=== PATIENT | male | born 1975 | race Caucasian/White ===

== ENCOUNTER 2019-05-09 12:20 | Emergency (ER) | payer OTHER ==
[~2019-05-09] VITALS: Ht 188 cm; Wt 154.5 kg
[2019-05-09 12:35] VITALS: Ht 188 cm; Wt 154.5 kg
[2019-05-09] MEDS ORDERED: PAXIL20 MG PO (12:39)
[2019-05-09] MEDS ORDERED: CYCLOBENZAPRINE10 MG PO (12:39)
[2019-05-09] MEDS ORDERED: HYDROCODON-ACE1 EAC2 PO (12:39)
[2019-05-09 15:06] VITALS: BP 142/86
== END 2019-05-09 15:07 | disposition home or self-care (01) ==
LOC: D.ER 12:20
DX: M79.672 Pain in left foot (principal); Z87.81 Personal history of (healed) traumatic fracture

== ENCOUNTER → 2019-08-04 18:03 | Outpatient (CLI) | payer OTHER ==
[2019-07-21 16:29] VITALS: BMI 43.7
[~2019-08-04 18:03] MED LIST: CYCLOBENZAPRINE10 MG PO; HYDROCODON-ACE1 EAC2 PO; PAXIL20 MG PO; TORADOL10 MG PO
== END | disposition home or self-care (01) ==
LOC: D.LABREF 18:03
PROVIDERS: ATTEND Orthopaedic Surgery
DX: M16.11 Unilateral primary osteoarthritis, right hip (principal)

== ENCOUNTER 2019-08-10 11:06 | Inpatient (IN) | payer OTHER ==
[~2019-08-10] VITALS: Ht 188 cm; Wt 147.7 kg
[2019-09-29 11:40] LABS: PROTIME 13.2 SECONDS (11.6-15.0)
[2019-09-29 11:41] LABS: APTT 27.1 SECONDS (22.8-39.4); BASOPHILS 0.3 % (0-2); EOSINOPHILS 2.7 % (0-7); HEMATOCRIT 48.5 % (42.0-54.0); HEMOGLOBIN 15.9 g/dL (13.5-17.5); IMMATURE GRANULOCYTES 0.3 % (0-5); LYMPHOCYTES 39.7 % (15-50); MCH 31.2 pg (26.0-34.0); MCHC 32.8 g/dL (31.0-37.0); MCV 95.3 fL (80.0-100.0); MEAN PLATELET VOLUME 8.7 fL (7.4-10.4); MONOCYTES 6.7 % (2-11); NEUTROPHILS 50.3 % (40-80); PLATELET COUNT 306 10x3/uL (130-400); RBC 5.09 10x6/uL (4.20-6.10); RDW 13.8 % (11.5-14.5); WBC 11.7 10x3/uL (4.8-10.8)
[2019-09-29 11:43] LABS: BILIRUBIN NEGATIVE (NEGATIVE); GLUCOSE NEGATIVE (NEGATIVE); KETONE NEGATIVE (NEGATIVE); NITRITE NEGATIVE (NEGATIVE); SPECIFIC GRAVITY 1.015 (1.005-1.020); UROBILINOGEN NORMAL (NORMAL)
[2019-09-29 11:44] LABS: BACTERIA FEW /hpf (NEGATIVE); EPITHELIAL CELLS 0-5 /hpf (0-5); RED CELLS - URINE 0-5 /hpf (0-5); WHITE CELLS - URINE 0-5 /hpf (NEGATIVE)
[2019-09-29 11:47] LABS: CALC OSMOLALITY 274 mosm/kg (275-300); CALCIUM 9.2 mg/dL (8.5-10.1); CARBON DIOXIDE 28.9 mmol/L (21.0-32.0); CHLORIDE - SERUM 102 mmol/L (98-107); CREATININE - SERUM 0.9 mg/dL (0.6-1.3); GLUCOSE 86 mg/dL (74-106); POTASSIUM - SERUM 4.2 mmol/L (3.5-5.1); SODIUM 139 mmol/L (136-145); UREA NITROGEN 7 mg/dL (7-18); eGFR NON AFRICAN AMERICAN > 90 mL/min (90-120)
[2019-10-05] VITALS (12 sets, daily range): BP systolic 98–138; BP diastolic 57–87; Ht 188 cm; Wt 147.7 kg
--- NOTE | 2019-10-05 11:10 | NUR ---
RECEIVED TO ROOM 1209 VIA BED FROM PACU. A/O X3. C/O PAIN TO RIGHT HIP LEVEL 10. WILL MONITOR. SKIN INTACT EXCEPT INCISION TO RIGHT HIP WHICH HAS A DRY INTACT DRESSING IN PLACE. VSS. DENIES NEEDS.
--- NOTE | 2019-10-05 11:32 | NUR ---
REQUESTED AND GIVNE ONE PERCOCET WITH 50MG VISTIRIL PO FOR C/O RIGHT HIP PAIN LEVEL 10. WILL MONITOR.
--- NOTE | 2019-10-05 12:10 | NUR ---
CONTINUES TO C/O RIGHT HIP LEVEL 10. GIVNE 15MG TORADOL SLOW IVP FOR SAME. WILL MONITOR.
--- NOTE | 2019-10-05 13:01 | NUR ---
ATE ALL OF LUNCH. REPORTS PAIN IMPROVED AT THIS TIME.
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
--- NOTE | 2019-10-05 16:25 | NUR ---
REQUESTED AND GIVEN 10MG OXY IR PO FOR C/O RIGHT HIP PAIN LEVEL 6. WILL MONITOR.
--- NOTE | 2019-10-05 17:46 | NUR ---
ATE ALL OF SUPPER TRAY. REPORTS PAIN WELL CONTROLLED WITH OXY IR PO. NO CHANGES NOTED. DENIES NEEDS.
--- NOTE | 2019-10-05 19:24 | NUR ---
PATIENT RESTING IN BED WITH NO S/S OF DISTRESS. VSS. PATIENT C/O PAIN. ADMINISTERED TORADOL PER ORDERS. PATIENT DENIES OTHER NEEDS AT THIS TIME. BED IN LOWEST POSITION AND CALL LIGHT WITHIN REACH. ENCOURAGED THE PATIENT TO CALL IF HE HAS NEEDS. WILL CONTINUE TO MONITOR.
--- NOTE | 2019-10-05 20:47 | NUR ---
PATIENT C/O IF UNCONTROLLED PAIN. ADMINISTERED OXY AND VISTARIL. WILL CONTINUE TO MONITOR. ENCOURAGED THE PATIENT TO CALL IF HE HAS NEEDS.
--- NOTE | 2019-10-05 22:30 | NUR ---
PATIENT C/O UNCONTROLLED PAIN. ADMINISTERED DILAUDID PER ORDERS. ENCOURAGED PATIENT TO CALL IF HE HAS NEEDS. WILL CONTINUE TO MONITOR.
--- NOTE | 2019-10-05 23:23 | NUR ---
PATIENT STATES PAIN IS BETTER, 5/10. WILL CONTINUE TO MONITOR.
[2019-10-06 03:21] VITALS: BP 101/67
[2019-10-06 06:58] LABS: BASOPHILS 0 % (0-2); EOSINOPHILS 0 % (0-7); HEMATOCRIT 38.7 % (42.0-54.0); HEMOGLOBIN 12.4 g/dL (13.5-17.5); IMMATURE GRANULOCYTES 0.3 % (0-5); LYMPHOCYTES 13.2 % (15-50); MCH 30.8 pg (26.0-34.0); MEAN PLATELET VOLUME 8.8 fL (7.4-10.4); NEUTROPHILS 78.5 % (40-80); PLATELET COUNT 285 10x3/uL (130-400); RBC 4.03 10x6/uL (4.20-6.10); RDW 13.9 % (11.5-14.5); WBC 16.9 10x3/uL (4.8-10.8)
[2019-10-06 07:09] LABS: CALC OSMOLALITY 276 mosm/kg (275-300); CARBON DIOXIDE 27.3 mmol/L (21.0-32.0); CHLORIDE - SERUM 104 mmol/L (98-107); CREATININE - SERUM 0.9 mg/dL (0.6-1.3); GLUCOSE 146 mg/dL (74-106); POTASSIUM - SERUM 4.7 mmol/L (3.5-5.1); SODIUM 137 mmol/L (136-145); UREA NITROGEN 12 mg/dL (7-18); eGFR NON AFRICAN AMERICAN > 90 mL/min (90-120)
[2019-10-06 07:38] VITALS: BP 105/66
--- NOTE | 2019-10-06 10:42 | NUR ---
PT CURRENTLY SITTING UP IN CHAIR AT BEDSIDE AFTER AMUBLATING WITH THERPAY. HAS BEEN USING INCENTIVE SPIROMETRY AND PULLING APPROX 1500CC EVERY FEW HOURS. SCDS ON BILAT. HAS VOIDED USING URINAL SEVERAL TIMES. STATES PAIN IS 4/10 AFTER PAIN MEDS THIS AM. FALL PRECAUTIONS IN PLACE. CALL LIGHT IN REACH. DRESSING TO RIGHT HIP CLEAN DRY AND INTACT
[2019-10-06 11:13] VITALS: BP 107/71
[2019-10-06 15:46] VITALS: BP 131/71
--- NOTE | 2019-10-06 19:25 | NUR ---
LYING IN BED. C/O PAIN IN RT HIP 7. WOUND VAC NOTED TO RT HIP WITH NO DRAINAGE NOTED. SCDS IN USE BILAT. RESP EVEN AND NONLABORED. NONPROD COUGH NOTED. ENCOURAGED USE OF I.S. 1/2 NS @ 50 MLHR INFUSING IN LT HAND WITHOUT DIFF. USES URINAL. ALERT AND ORIENTED X4. IRRITABLE AT TIMES. SABRINA ON. SR ELEVATED X2. CL IN REACH.
[2019-10-06 20:00] VITALS: BP 132/72
--- NOTE | 2019-10-06 20:25 | NUR ---
MEDICATED WITH FLEXERIL FOR C/O PAIN IN RT HIP.
--- NOTE | 2019-10-06 20:57 | MORECARE ---
CASE MANAGEMENT DISCHARGE SUMMARY PATIENT: KARELY SCHREIBER KATHRINE UNIT: [id number] ADM DATE: 10/05/19 AGE: 44 : 71 SEX: M ROOM/BED: D.1209 AUTHOR: AKUA JOHNSON PHYSICIAN: REFERRING PHYSICIAN: SIVA DINH DO DATE OF SERVICE: 10/06/19 Discharge Plan Patient Name: KARELY SCHREIBER Facility: [facility]:[place] : 1975 Planned Disposition: Anticipated Discharge Date: Discharge Date: Expected LOS: Initial Reviewer: [email or web address] Initial Review Date: 10/05/2019 Generated: 10/06/19 9:56 pm Patient Name: KARELY SCHREIBER Page [id number] at 2056 All edits/amendments must be made on the electronic document DICTATION DATE: 10/06/192055 LINE LOCATOR: XOCHILT 10/06/192055 RPT#: [id number] DC DATE: STATUS: ADM IN [facility] [address] [place] [address] END OF REPORT
--- NOTE | 2019-10-06 21:03 | MORECARE ---
CASE MANAGEMENT DISCHARGE SUMMARY PATIENT: KARELY SCHREIBER UNIT: [id number] ADM DATE: 10/05/19 AGE: 44 : 71 SEX: M ROOM/BED: D.1209 AUTHOR: AKUA JOHNSON PHYSICIAN: REFERRING PHYSICIAN: SIVA DINH DO DATE OF SERVICE: 10/06/19 Discharge Plan Patient Name: KARELY SCHREIBER Facility: [facility]:[place] : 1975 Planned Disposition: Anticipated Discharge Date: Discharge Date: Expected LOS: Initial Reviewer: [email or web address] Initial Review Date: 10/05/2019 Generated: 10/06/19 10:03 pm Comments DCP- Discharge Planning Updated by [email or web address]: Lourdes Paulson on 10/06/19 8:[address] Patient Name: KARELY SCHREIBER Admission Status: Elective Accout number: [id number] Admission Date: 10-05-2019 : 1975 Admission Diagnosis: Attending: SIVA DINH Current LOS: 1 Anticipated DC Date: Planned Disposition: Primary Insurance: [facility] PPO Discharge Planning Comments: CM met with patient at bedside after explaining CM role and obtaining verbal consent. Patient lives at home with family where he is independent with his care and plans to return there upon discharge. Patient feels this would be a safe discharge. CM discussed availability / needs of home health and medical equipment. CM met with patient at bedside after explaining CM role and obtaining verbal consent. Patient states that they are suppose to get me a walker and whatever else we need. DME [facility] signed for outpatient therapy [facility]. CM will send orders for therapy and DME orders. Patient denies any discharge needs at this time. Patient states he will have his family drive him home upon discharge. CM will continue to follow and assist as needed with discharge planning / needs. Collar Fuser: Lourdes Paulson Last DP export: 10/06/19 7:57 pm Patient Name: KARELY SCHREIBER Page 12516 at 2103 All edits/amendments must be made on the electronic document DICTATION DATE: 10/06/192102 MAT WEAVER: DM 10/06/192102 RPT#: [id number] DC DATE: STATUS: ADM IN [facility] [address] [place] [address] END OF REPORT
--- NOTE | 2019-10-06 21:10 | MORECARE ---
CASE MANAGEMENT DISCHARGE SUMMARY PATIENT: KARELY SCHREIBER UNIT: [id number] ADM DATE: 10/05/19 AGE: 44 : 71 SEX: M ROOM/BED: D.1209 AUTHOR: ELIZABETH,DOC PHYSICIAN: REFERRING PHYSICIAN: SIVA DINH DO DATE OF SERVICE: 10/06/19 Discharge Plan Patient Name: KARELY SCHREIBER Facility: [facility]:[place] : 1975 Planned Disposition: Home Anticipated Discharge Date: Discharge Date: Expected LOS: Initial Reviewer: [email or web address] Initial Review Date: 10/05/2019 Generated: 10/06/19 10:09 pm Comments DCP- Discharge Planning Updated by [email or web address]: Lourdes Paulson on 10/06/19 8:[address] Patient Name: KARELY SCHREIBER Admission Status: Elective Accout number: [id number] Admission Date: 10-05-2019 : 1975 Admission Diagnosis: Attending: SIVA DINH Current LOS: 1 Anticipated DC Date: Planned Disposition: Primary Insurance: [place] [employer] PPO Discharge Planning Comments: CM met with patient at bedside after explaining CM role and obtaining verbal consent. Patient lives at home with family where he is independent with his care and plans to return there upon discharge. Patient feels this would be a safe discharge. CM discussed availability / needs of home health and medical equipment. CM met with patient at bedside after explaining CM role and obtaining verbal consent. Patient states that they are suppose to get me a walker and whatever else we need. DME [facility] [facility] signed for outpatient therapy [facility]. CM will send orders for therapy and DME orders. Patient denies any discharge needs at this time. Patient states he will have his family drive him home upon discharge. CM will continue to follow and assist as needed with discharge planning / needs. Rubber Compounder Mixer: Lourdes Paulson DCPIA - Discharge Planning Initial Assessment Updated by [email or web address]: Lourdes Paulson on 10/06/19 9:10 pm * Is the patient Alert and Oriented? Yes * How many steps to enter\exit or inside your home? * PCP HONORIO HUBER * Pharmacy [facility] * Preadmission Environment Home with Family * ADLs Independent * Equipment None * List name and contact numbers for known caregivers / representatives who currently or will assist patient after discharge: CLARITA HERNANDEZ - - [phone] * Verbal permission to speak to the caregivers and representatives has been obtained from the patient. Yes * Community resources currently utilized None * Additional services required to return to the preadmission environment? No * Can the patient safely return to the preadmission environment? Yes * Has this patient been hospitalized within the prior 30 days at any hospital? No Last DP export: 10/06/19 8:03 pm Patient Name: KAREYL SCHREIBER Page [phone] at 2110 All edits/amendments must be made on the electronic document DICTATION DATE: 10/06/192109 ENTRY LEVEL FINANCE: XOCHILT 10/06/192109 RPT#: [id number] DC DATE: STATUS: ADM IN [facility] [address] [place] [address] END OF REPORT
--- NOTE | 2019-10-06 21:36 | MORECARE ---
CASE MANAGEMENT DISCHARGE SUMMARY PATIENT: KARELY SCHREIBER UNIT: [id number] ADM DATE: 10/05/19 AGE: 44 : 71 SEX: M ROOM/BED: D.1209 AUTHOR: ELIZABETH,DOC PHYSICIAN: REFERRING PHYSICIAN: SIVA DINH DO DATE OF SERVICE: 10/06/19 Discharge Plan Patient Name: KARELY SCHREIBER Facility: [facility]:[place] : 1975 Planned Disposition: Home Anticipated Discharge Date: Discharge Date: Expected LOS: Initial Reviewer: [email or web address] Initial Review Date: 10/05/2019 Generated: 10/06/19 10:35 pm Comments DCP- Discharge Planning Updated by [email or web address]: Lourdes Paulson on 10/06/19 8:[address] Patient Name: KARELY SCHREIBER Admission Status: Elective Accout number: [id number] Admission Date: 10-05-2019 : 1975 Admission Diagnosis: Attending: SIVA DINH Current LOS: 1 Anticipated DC Date: Planned Disposition: Primary Insurance: [employer] [employer] PPO Discharge Planning Comments: CM met with patient at bedside after explaining CM role and obtaining verbal consent. Patient lives at home with family where he is independent with his care and plans to return there upon discharge. Patient feels this would be a safe discharge. CM discussed availability / needs of home health and medical equipment. CM met with patient at bedside after explaining CM role and obtaining verbal consent. Patient states that they are suppose to get me a walker and whatever else we need. DME [facility] signed for outpatient therapy [facility]. CM will send orders for therapy and DME orders. Patient denies any discharge needs at this time. Patient states he will have his family drive him home upon discharge. CM will continue to follow and assist as needed with discharge planning / needs. Strapper Operator: Lourdes Paulson DCPIA - Discharge Planning Initial Assessment Updated by [email or web address]: Lourdes Paulson on 10/06/19 9:10 pm * Is the patient Alert and Oriented? Yes * How many steps to enter\exit or inside your home? * PCP [facility]ON[facility]IO HUBER * Pharmacy [facility] * Preadmission Environment Home with Family * ADLs Independent * Equipment None * List name and contact numbers for known caregivers / representatives who currently or will assist patient after discharge: CLARITA HERNANDEZ - - [phone] * Verbal permission to speak to the caregivers and representatives has been obtained from the patient. Yes * Community resources currently utilized None * Additional services required to return to the preadmission environment? No * Can the patient safely return to the preadmission environment? Yes * Has this patient been hospitalized within the prior 30 days at any hospital? No External Providers [facility] Next Contact Date: Service Request Date: Service Type: Resolution: Reviewer: Comments: Last DP export: 10/06/19 8:10 pm Patient Name: KARELY SCHREIBER Page [phone] at 2136 All edits/amendments must be made on the electronic document DICTATION DATE: 10/06/192134 VITAMIN MANAGER: XOCHILT 10/06/192134 RPT#: [id number] DC DATE: STATUS: ADM IN [facility] [address] [place] [address] END OF REPORT
--- NOTE | 2019-10-07 00:27 | NUR ---
ASSISTED UP TO BR. REFUSED TO USE WALKER AT FIRST. IRRITABLE WITH STAFF. WANTS IV SALINE LOCKED. REFUSED TO USE BSC. UNSTEADY. C/O PAIN IN RT HIP. MEDICATED WITH OXYCODONE PER REQUEST. CL IN REACH.
[2019-10-07 00:30] VITALS: BP 134/68
--- NOTE | 2019-10-07 03:00 | NUR ---
RESTING WITH EYES CLOSED. RESP NONLABORED. NO DISTRESS. CL IN REACH.
[2019-10-07 04:31] VITALS: BP 107/62
[2019-10-07 06:52] LABS: BASOPHILS 0.2 % (0-2); EOSINOPHILS 1.4 % (0-7); HEMATOCRIT 35.4 % (42.0-54.0); HEMOGLOBIN 11.3 g/dL (13.5-17.5); IMMATURE GRANULOCYTES 0.6 % (0-5); LYMPHOCYTES 37.5 % (15-50); MCH 30.7 pg (26.0-34.0); MCHC 31.9 g/dL (31.0-37.0); MCV 96.2 fL (80.0-100.0); MEAN PLATELET VOLUME 8.8 fL (7.4-10.4); MONOCYTES 8.3 % (2-11); PLATELET COUNT 236 10x3/uL (130-400); RBC 3.68 10x6/uL (4.20-6.10)
[2019-10-07 06:55] LABS: WBC 12.5 10x3/uL (4.8-10.8)
[2019-10-07 07:19] LABS: CALC OSMOLALITY 277 mosm/kg (275-300); CALCIUM 7.9 mg/dL (8.5-10.1); CARBON DIOXIDE 28.6 mmol/L (21.0-32.0); CHLORIDE - SERUM 105 mmol/L (98-107); CREATININE - SERUM 0.8 mg/dL (0.6-1.3); SODIUM 140 mmol/L (136-145); UREA NITROGEN 13 mg/dL (7-18); eGFR NON AFRICAN AMERICAN > 90 mL/min (90-120)
[2019-10-07 07:20] LABS: GLUCOSE 88 mg/dL (74-106)
[2019-10-07 07:43] VITALS: BP 123/68
--- NOTE | 2019-10-07 08:30 | NUR ---
BREAKFAST SERVED IN ROOM. ATE MOST OF TRAY. REQUESTED AND GIVEN 10MG OXY WTIH 50MG VISTARIL FOR PAIN LEVEL 6 TO RIGHT HIP. WILL MONITOR. AWAKE AND ALERT. ORIENTED X3. SKIN IS INTACT WITHOUT REDNESS EXCEPT INCISION TO RIGHT HIP WHICH HAS A DRY INTACT DRESSING IN PLACE. SL TO LEFT HAND IS PATENT WITHOUT REDNESS AT INSERTION SITE, DENIES NEEDS.
[2019-10-07] MEDS ORDERED: BAYER CHEWABLE81 MG PO (08:33)
[2019-10-07] MEDS ORDERED: VISTARIL50 MG PO (08:34)
[2019-10-07] MEDS ORDERED: OXYCODONE HCL10 MG PO (08:34)
[2019-10-07] MEDS ORDERED: KEFLEX500 MG PO (08:34)
[2019-10-07 11:44] VITALS: BP 109/70
--- NOTE | 2019-10-07 12:38 | MORECARE ---
CASE MANAGEMENT DISCHARGE SUMMARY PATIENT: KARELY SCHREIBER UNIT: [id number] ADM DATE: 10/05/19 AGE: 44 : 71 SEX: M ROOM/BED: D.1209 AUTHOR: ELIZABETH,DOC PHYSICIAN: REFERRING PHYSICIAN: SIVA DINH DO DATE OF SERVICE: 10/07/19 Discharge Plan Patient Name: KARELY SCHREIBER Facility: [facility]:[place] : 1975 Planned Disposition: Home Anticipated Discharge Date: Discharge Date: Expected LOS: Initial Reviewer: [email or web address] Initial Review Date: 10/05/2019 Generated: 10/07/19 1:37 pm Comments DCP- Discharge Planning Updated by [email or web address]: Lourdes Paulson on 10/06/19 8:[address] Patient Name: KARELY SCHREIBER Admission Status: Elective Accout number: [id number] Admission Date: 10-05-2019 : 1975 Admission Diagnosis: Attending: SIVA DINH Current LOS: 1 Anticipated DC Date: Planned Disposition: Primary Insurance: [employer] PPO Discharge Planning Comments: CM met with patient at bedside after explaining CM role and obtaining verbal consent. Patient lives at home with family where he is independent with his care and plans to return there upon discharge. Patient feels this would be a safe discharge. CM discussed availability / needs of home health and medical equipment. CM met with patient at bedside after explaining CM role and obtaining verbal consent. Patient states that they are suppose to get me a walker and whatever else we need. DME [facility] signed for outpatient therapy [facility]. CM will send orders for therapy and DME orders. Patient denies any discharge needs at this time. Patient states he will have his family drive him home upon discharge. CM will continue to follow and assist as needed with discharge planning / needs. Breaker Up: Lourdes Paulson DCPIA - Discharge Planning Initial Assessment Updated by [email or web address]: Lourdes Paulson on 10/06/19 9:10 pm * Is the patient Alert and Oriented? Yes * How many steps to enter\exit or inside your home? * PCP [facility]IO HUBER * Pharmacy [facility] * Preadmission Environment Home with Family * ADLs Independent * Equipment None * List name and contact numbers for known caregivers / representatives who currently or will assist patient after discharge: CLARITA HERNANDEZ - - [phone] * Verbal permission to speak to the caregivers and representatives has been obtained from the patient. Yes * Community resources currently utilized None * Additional services required to return to the preadmission environment? No * Can the patient safely return to the preadmission environment? Yes * Has this patient been hospitalized within the prior 30 days at any hospital? No External Providers External Provider: OTHER-OTHER Next Contact Date: Service Request Date: Service Type: Resolution: Reviewer: Comments: Last DP export: 10/06/19 8:36 pm Patient Name: KARELY SCHREIBER Page [phone] at 1238 All edits/amendments must be made on the electronic document DICTATION DATE: 10/07/19 1237 DIRECTOR OF HOTEL: XOCHILT 10/07/19 1237 RPT#: [id number] DC DATE: STATUS: ADM IN [facility] [address] [place] [address] END OF REPORT
--- NOTE | 2019-10-07 13:08 | NUR ---
DISCHARGED TO HOME AMBULATORY WITH FAMILY. DISCHARGE INSTRUCTIONS GIVEN BOTH VERBALLY AND WRITTEN. ALL QUESTIONS ANSWERED. PATIENT VERBALIZED UNDERSTANDING OF SAME. NEEDED PRESCRIPTIONS GIVEN TO PATIENT. WOUND VAC CHANGED OVER TO PROVENNA. INSTRUCTED PATIENT IN USE OF SAME. SL TO LEFT HAND D/C WITH NEEDLE INTACT. ALL BELONGINGS WITH PATIENT.
--- NOTE | 2019-10-07 18:35 | MORECARE ---
CASE MANAGEMENT DISCHARGE SUMMARY PATIENT: KARELY SCHREIBER UNIT: [id number] ADM DATE: 10/05/19 AGE: 44 : 71 SEX: M ROOM/BED: D.1209 AUTHOR: ELIZABETH,DOC PHYSICIAN: REFERRING PHYSICIAN: SIVA DINH DO DATE OF SERVICE: 10/07/19 Discharge Plan Patient Name: KARELY SCHREIBER Facility: [facility]:[place] : 1975 Planned Disposition: Home Anticipated Discharge Date: Discharge Date: 10/07/2019 Expected LOS: Initial Reviewer: [email or web address] Initial Review Date: 10/05/2019 Generated: 10/07/19 7:35 pm Comments DCP- Discharge Planning Updated by [email or web address]: Lourdes Paulson on 10/06/19 8:[address] Patient Name: KARELY SCHREIBER Admission Status: Elective Accout number: [id number] Admission Date: 10-05-2019 : 1975 Admission Diagnosis: Attending: SIVA DINH Current LOS: 1 Anticipated DC Date: Planned Disposition: Primary Insurance: [email or web address] PPO Discharge Planning Comments: CM met with patient at bedside after explaining CM role and obtaining verbal consent. Patient lives at home with family where he is independent with his care and plans to return there upon discharge. Patient feels this would be a safe discharge. CM discussed availability / needs of home health and medical equipment. CM met with patient at bedside after explaining CM role and obtaining verbal consent. Patient states that they are suppose to get me a walker and whatever else we need. DME [facility] signed for outpatient therapy [facility]. CM will send orders for therapy and DME orders. Patient denies any discharge needs at this time. Patient states he will have his family drive him home upon discharge. CM will continue to follow and assist as needed with discharge planning / needs. Residential Finish Carpenter: Lourdes Paulson DCPIA - Discharge Planning Initial Assessment Updated by [email or web address]: Lourdes Paulson on 10/06/19 9:10 pm * Is the patient Alert and Oriented? Yes * How many steps to enter\exit or inside your home? * PCP [facility]IO HUBER * Pharmacy [facility] * Preadmission Environment Home with Family * ADLs Independent * Equipment None * List name and contact numbers for known caregivers / representatives who currently or will assist patient after discharge: CLARITA HERNANDEZ - SISTER - [phone] * Verbal permission to speak to the caregivers and representatives has been obtained from the patient. Yes * Community resources currently utilized None * Additional services required to return to the preadmission environment? No * Can the patient safely return to the preadmission environment? Yes * Has this patient been hospitalized within the prior 30 days at any hospital? No Last DP export: 10/07/19 11:38 am Patient Name: KARELY SCHREIBER Page [phone] at 1835 All edits/amendments must be made on the electronic document DICTATION DATE: 10/07/191834 METAL TILE SETTER: XOCHILT 10/07/191834 RPT#: [id number] DC DATE:10/07/19 STATUS: DIS IN [facility] [address] [place] [address] END OF REPORT
--- NOTE | 2019-10-07 18:42 | MORECARE ---
CASE MANAGEMENT DISCHARGE SUMMARY PATIENT: KARELY SCHREIBER UNIT: [id number] ADM DATE: 10/05/19 AGE: 44 : 71 SEX: M ROOM/BED: D.1209 AUTHOR: ELIZABETH,DOC PHYSICIAN: REFERRING PHYSICIAN: SIVA DINH DO DATE OF SERVICE: 10/07/19 Discharge Plan Patient Name: KARELY SCHREIBER Facility: [facility]:[place] : 1975 Planned Disposition: Home Anticipated Discharge Date: Discharge Date: 10/07/2019 Expected LOS: Initial Reviewer: [email or web address] Initial Review Date: 10/05/2019 Generated: 10/07/19 7:41 pm Comments DCP- Discharge Planning Updated by [email or web address]: Lourdes Paulson on 10/07/19 5:[address] CM called [employer] and sent orders for sc. walker and bedside commode. DME company to deliver to patient's room. patient set up for outpatient Therapy 10/11/19 Tomorrow therapy appointment and orders given to patient. CM received a call that patient's DME equipment was delivered and he stated that he could not fit in it and stated that he wanted [employer] to pick it up. He will get his own. CM called and spoke with Emily 3 different times that they need to come medicinal plant picker equipment and credit the patient. DCP- Discharge Planning Updated by [email or web address]: Lourdes Paulson on 10/06/19 8:[address] Patient Name: KARELY SCHREIBER Admission Status: Elective Accout number: [id number] Admission Date: 10-05-2019 : 1975 Admission Diagnosis: Attending: SIVA DINH Current LOS: 1 Anticipated DC Date: Planned Disposition: Primary Insurance: [facility] PPO Discharge Planning Comments: CM met with patient at bedside after explaining CM role and obtaining verbal consent. Patient lives at home with family where he is independent with his care and plans to return there upon discharge. Patient feels this would be a safe discharge. CM discussed availability / needs of home health and medical equipment. CM met with patient at bedside after explaining CM role and obtaining verbal consent. Patient states that they are suppose to get me a walker and whatever else we need. DME [facility] [facility] signed for outpatient therapy [facility]. CM will send orders for therapy and DME orders. Patient denies any discharge needs at this time. Patient states he will have his family drive him home upon discharge. CM will continue to follow and assist as needed with discharge planning / needs. Feed Elevator Worker: Lourdes Paulson DCPIA - Discharge Planning Initial Assessment Updated by [email or web address]: Lourdes Paulson on 10/06/19 9:10 pm * Is the patient Alert and Oriented? Yes * How many steps to enter\exit or inside your home? * PCP HONORIO HUBER * Pharmacy [facility] * Preadmission Environment Home with Family * ADLs Independent * Equipment None * List name and contact numbers for known caregivers / representatives who currently or will assist patient after discharge: CLARITA HERNANDEZ [facility] [phone] * Verbal permission to speak to the caregivers and representatives has been obtained from the patient. Yes * Community resources currently utilized None * Additional services required to return to the preadmission environment? No * Can the patient safely return to the preadmission environment? Yes * Has this patient been hospitalized within the prior 30 days at any hospital? No Last DP export: 10/07/19 5:35 pm Patient Name: KARELY SCHREIBER Page [id number] at [id number] All edits/amendments must be made on the electronic document DICTATION DATE: 10/07/191840 AGRICULTURE INSTRUCTOR: [email or web address] 10/07/191840 RPT#: [id number] DC DATE:10/07/19 STATUS: DIS IN [facility] [address] [place] [address] END OF REPORT
== END 2019-10-07 13:14 | disposition home or self-care (01) | DRG 470 ==
LOC: D.SDCHOLD 08-25 10:00 → D.M3 10-05 06:03 → D.SDCHOLD 10-05 07:00 → D.M3 10-05 10:49
PROVIDERS: Internal Medicine Nephrology; ADMIT Orthopaedic Surgery; ATTEND Orthopaedic Surgery
PROC: 0SR90JZ Replacement of Right Hip Joint with Synthetic Substitute, Open Approach (ICD-10-PCS; principal; 2019-10-05 07:45)
DX: M16.51 Unilateral post-traumatic osteoarthritis, right hip (principal); Z68.41 Body mass index [BMI] 40.0-44.9, adult; F17.203 Nicotine dependence unspecified, with withdrawal; G47.30 Sleep apnea, unspecified; F32.9 Major depressive disorder, single episode, unspecified; E66.9 Obesity, unspecified; D64.9 Anemia, unspecified

== ENCOUNTER 2019-10-16 10:05 | Emergency (ER) | payer OTHER ==
[~2019-10-16] VITALS: Ht 188 cm; Wt 148.2 kg
[~2019-10-16 10:05] MED LIST changes: +BAYER CHEWABLE81 MG PO; +KEFLEX500 MG PO; +OXYCODONE HCL10 MG PO; +VISTARIL50 MG PO
[2019-10-16 10:07] VITALS: Ht 188 cm; Wt 148.2 kg
[2019-10-16 10:40] LABS: BASOPHILS 0.3 % (0-2); EOSINOPHILS 2.4 % (0-7); HEMATOCRIT 37.7 % (42.0-54.0); HEMOGLOBIN 12.4 g/dL (13.5-17.5); IMMATURE GRANULOCYTES 0.8 % (0-5); LYMPHOCYTES 23.4 % (15-50); MCHC 32.9 g/dL (31.0-37.0); MCV 94.3 fL (80.0-100.0); MEAN PLATELET VOLUME 8.1 fL (7.4-10.4); NEUTROPHILS 66.1 % (40-80); RDW 13.4 % (11.5-14.5); WBC 10.4 10x3/uL (4.8-10.8)
[2019-10-16 10:41] LABS: PLATELET COUNT 336 10x3/uL (130-400)
[2019-10-16 10:51] LABS: APTT 29.8 SECONDS (22.8-39.4); CALC OSMOLALITY 271 mosm/kg (275-300); CARBON DIOXIDE 28.3 mmol/L (21.0-32.0); CHLORIDE - SERUM 103 mmol/L (98-107); CREATININE - SERUM 0.9 mg/dL (0.6-1.3); GLUCOSE 95 mg/dL (74-106); INR 1.08 (0.85-1.17); POTASSIUM - SERUM 3.9 mmol/L (3.5-5.1); SODIUM 137 mmol/L (136-145); UREA NITROGEN 8 mg/dL (7-18); eGFR NON AFRICAN AMERICAN > 90 mL/min (90-120)
[2019-10-16 10:52] LABS: D-DIMER-QUANTITATIVE 1.4 ug/mLFEU (0.20-0.54)
[2019-10-16 11:09] LABS: ALBUMIN 2.7 g/dL (3.4-5.0); ALKALINE PHOSPHATASE 60 U/L (30-120); ALT (SGPT) 29 U/L (10-68); BILIRUBIN - TOTAL 0.37 mg/dL (0.2-1.3); CKMB 0.5 U/L (0.0-3.6); CREATINE KINASE 67 UL (21-232); MAGNESIUM - SERUM 2.1 mg/dL (1.8-2.4); PROTEIN - SERUM 7.5 g/dL (6.4-8.2); TROPONIN-I < 0.017 ng/mL (0.000-0.060)
[2019-10-16 15:15] LABS: CKMB 0.2 U/L (0.0-3.6); CREATINE KINASE 71 UL (21-232); TROPONIN-I < 0.017 ng/mL (0.000-0.060)
[2019-10-16] MEDS ORDERED: PROTONIX40 MG PO (15:32)
[2019-10-16 15:52] VITALS: BP 135/84
== END 2019-10-16 15:53 | disposition home or self-care (01) ==
LOC: D.ER 10:05
PROVIDERS: Family Medicine
DX: R07.9 Chest pain, unspecified (principal); K29.70 Gastritis, unspecified, without bleeding; K21.9 Gastro-esophageal reflux disease without esophagitis; R06.00 Dyspnea, unspecified; Z96.641 Presence of right artificial hip joint

== ENCOUNTER 2019-10-26 13:50 | Emergency (ER) | payer OTHER ==
[~2019-10-26] VITALS: Ht 188 cm; Wt 148.2 kg
[~2019-10-26 13:50] MED LIST changes: +PROTONIX40 MG PO
[2019-10-26 13:56] VITALS: Ht 188 cm; Wt 148.2 kg
[2019-10-26 14:13] LABS: BASOPHILS 0.3 % (0-2); EOSINOPHILS 1.7 % (0-7); HEMATOCRIT 43.8 % (42.0-54.0); HEMOGLOBIN 14.4 g/dL (13.5-17.5); IMMATURE GRANULOCYTES 0.3 % (0-5); LYMPHOCYTES 26.7 % (15-50); MCH 30.8 pg (26.0-34.0); MCHC 32.9 g/dL (31.0-37.0); MCV 93.6 fL (80.0-100.0); MEAN PLATELET VOLUME 8.2 fL (7.4-10.4); MONOCYTES 5.3 % (2-11); NEUTROPHILS 65.7 % (40-80); PLATELET COUNT 362 10x3/uL (130-400); RBC 4.68 10x6/uL (4.20-6.10); RDW 13.1 % (11.5-14.5); WBC 10.4 10x3/uL (4.8-10.8)
[2019-10-26 14:22] LABS: CALC OSMOLALITY 275 mosm/kg (275-300); CALCIUM 9.6 mg/dL (8.5-10.1); CARBON DIOXIDE 28.4 mmol/L (21.0-32.0); CHLORIDE - SERUM 101 mmol/L (98-107); CREATININE - SERUM 1.1 mg/dL (0.6-1.3); GLUCOSE 112 mg/dL (74-106); SODIUM 138 mmol/L (136-145); UREA NITROGEN 10 mg/dL (7-18); eGFR NON AFRICAN AMERICAN 76 mL/min (90-120)
[2019-10-26 14:31] LABS: ALBUMIN 3.3 g/dL (3.4-5.0); ALKALINE PHOSPHATASE 102 U/L (30-120); ALT (SGPT) 28 U/L (10-68); AMYLASE - SERUM 46 U/L (25-115); BILIRUBIN - TOTAL 0.22 mg/dL (0.2-1.3); LIPASE 90 U/L (73-393); PROTEIN - SERUM 8.8 g/dL (6.4-8.2); TROPONIN-I < 0.017 ng/mL (0.000-0.060)
[2019-10-26 14:41] LABS: BILIRUBIN NEGATIVE (NEGATIVE); GLUCOSE NEGATIVE (NEGATIVE); KETONE NEGATIVE (NEGATIVE); NITRITE NEGATIVE (NEGATIVE); UROBILINOGEN NORMAL (NORMAL)
[2019-10-26 16:18] VITALS: BP 118/84
[2019-10-26 17:08] LABS: ERYTHROCYTE SEDIMENTATION RATE 37 mm/hr (0-15)
== END 2019-10-26 16:18 | disposition home or self-care (01) ==
LOC: D.ER 13:50
PROVIDERS: Family Medicine
DX: R10.30 Lower abdominal pain, unspecified (principal); R11.0 Nausea; Z96.641 Presence of right artificial hip joint; R30.9 Painful micturition, unspecified

== ENCOUNTER → 2019-12-17 03:09 | Outpatient (CLI) | payer OTHER ==
[2019-10-26 13:56] VITALS: BMI 41.9
== END | disposition home or self-care (01) ==
LOC: D.LABREF 03:09
PROVIDERS: ATTEND Orthopaedic Surgery
DX: M17.11 Unilateral primary osteoarthritis, right knee (principal)